=== PATIENT | female | born 1965 | race Hispanic/Latino ===

== ENCOUNTER 2024-08-06 15:37 | Outpatient (CLI) | payer OTHER, SELFPAY ==
--- NOTE | ~2024-08-06 | MM_ITS ---
EXAMINATION: MM screening kiara BI w suzette HISTORY: Screening TECHNIQUE: Craniocaudal and mediolateral oblique 3-D tomosynthesis images were obtained and synthetic 2-D images were generated. CAD analysis was submitted and interpreted. COMPARISON: No prior mammogram is available for comparison at this institution. BREAST PARENCHYMAL COMPOSITION: Not dense: There are scattered areas of fibroglandular density. FINDINGS: There are nodular asymmetries centered in the upper outer quadrant of the right breast anteriorly. No mammographic evidence for malignancy in the left breast. IMPRESSION: 1. Nodular asymmetries of the right breast. 2. Additional mammographic views and possible breast ultrasound are recommended. BI-RADS Category 0: Incomplete: Needs additional imaging evaluation. Reviewed, dictated and finalized at location B. [facility] IMPRESSION: 1. Nodular asymmetries of the right breast. 2. Additional mammographic views and possible breast ultrasound are recommended . BI-RADS Category 0: Incomplete: Needs additional imaging evaluation.
== END 2024-08-06 15:38 | disposition home or self-care (01) ==
LOC: ANHIMG 15:50
PROVIDERS: PCP Nurse Practitioner Family; Visit Provider Obstetrics & Gynecology
DX: Z12.31 Encounter for screening mammogram for malignant neoplasm of breast (principal); R92.8 Other abnormal and inconclusive findings on diagnostic imaging of breast
CPT/HCPCS: 77063; 77067

== ENCOUNTER 2025-07-03 10:05 | Emergency (ER) | payer SELFPAY ==
--- OUTSIDE RECORDS SUMMARY | 2025-07-03 10:08 | XMS_ITS | Encounter Summary ---
Author Organization [facility] - [facility] Address [facility] [place] [address] Care Team Providers Care Extracorporeal Circulation Specialist Name Role Phone Valentina Thornton MD Primary Care Provider [phone] Encounter Details Date Type Department Care Team (Late st Contact Info) Description 04/08/2025 Sproom Message Enc [facility] Medical [facility] General Surgery [address], [address] [place] [address] [facility] Provider Schedule Orthopedic Consultation Appointment Social History Tobacco Use Types Packs/Day Years Used Date Smoking Tobacco: Never Smokeless Tobacco: Never Alcohol Use Standard Drinks/Week Comments Yes 0 (1 standard drink = 0.6 oz pur e alcohol) [facility] Utilities Answer Date Recorded In the past 12 months has e electric, gas, oil, or water company threatened to shut off services in your home? No 07/28/2023 Humiliation, Afraid, Rape, and Kick questionnair e Answer Date Recorded Within the last year, have y ou been afraid of your partner or ex-partner? No 07/28/2023 Within the last year, have y ou been humiliated or emotionally abused in other ways by your partner or ex-partner? No Within the last year, have y ou been kicked, hit, slapped, or otherwise physically hurt by your partner or ex-partner? No 07/28/2023 Within the last year, have y ou been raped or forced to have any kind of sexual activity by your partner or ex-partner? No 07/28/2023 Overall Financial Resource Strain (CARDIA) Answe r Date Recorded How hard is it for you to pa y for the very basics like food, housing, medical care, and heating? Somewhat hard 07/28/2023 PHQ-2 Answer Date Recorded Patient Health Questionnaire-2 Score 0 10/29/2024 Hunger Vital Sign Answer Date Recorded Within the past 12 months, y ou worried that your food would run out before you got the money to buy more. Never true 07/28/20 23 Within the past 12 months, t he food you bought just didn't last and you didn't have money to get more. Never true 07/28/2023 PRAPARE - Transportation Answer Date Re corded In the past 12 months, has l ack of transportation kept you from medical appointments or from getting medications? No 07/03 In the past 12 months, has l ack of transportation kept you from meetings, work, or from getting things needed for daily living? No 07/28/2023 Housing Stability Vital Sign Answer Beto e Recorded In the last 12 months, was t here a time when you were not able to pay the mortgage or rent on time? Yes 07/28/2023 In the last 12 months, how many places have you lived? 1 07/28/2023 In the last 12 months, was t here a time when you did not have a steady place to sleep or slept in a correction (including now)? No 07/28/2023 Comments No Sex and Gender Information Value Date Recorded Sex Assigned at Female 10/28/2024 8:44 AM GEOSCIENCE PROFESSOR Legal Sex Female 5:29 PM CDT Gender Identity Female 10/28/2024 8:44 AM GEOSCIENCE PROFESSOR Sexual Orientation Straight 10/29/2024 10 :15 AM GEOSCIENCE PROFESSOR documented as of this encounter Functional Status * Are you deaf or do you have serious difficulty hearing Answer Date of Assessment Author Status No 07/28/2023 5:35 PM Bambi Ramirez RN Active * Are you blind or do you have serious difficulty seeing, even when wearing glasses? Answer Date of Assessment Author Status No 07/28/2023 5:35 PM Bambi Ramirez RN Active * Do you have serious difficulty walking or climbing stairs? Answer Date of Assessment Author Status Yes 07/28/2023 5:35 PM Bambi Ramirez RN Active * Do you have difficulty dressing or bathing? Answer Date of Assessment Author Status No 07/28/2023 5:35 PM Bambi Ramirez RN Active * Because of a physical, mental, or emotional condition, do you have difficulty doing errands alone such as visiting a doctor's office or shopping? Answer Date of Assessment Author Status No 07/28/2023 5:35 PM Bambi Ramirez RN Active documented as of this encounter Mental Status * Because of a physical, mental, or emotional condition, do you have serious difficulty concentrating, remembering, or making decisions? Answer Entry Date Author Status No 07/28/2023 5:35 PM Bambi Ramirez RN Active documented in this encounter Plan of Treatment Upcoming Encounters Date Type Department Care Team (Late st Contact Info) Description 08/26/2025 8:40 AM GEOSCIENCE PROFESSOR Office Visit [facility] - [address] [address] [place] [address] [place] [address] [facility] [address] [place] [id number] 12/19/2025 8:20 AM CDT Office Visit [facility] - [address], [address] [place] [phone] David Hawk MD [address] [place] [address] [place] [id number] documented as of this encounter Visit Diagnoses Not on filedocumented in this encounter Additional Health Concerns Assessment Noted Time PHQ-9 Depression Total Score: 3 10/29/19 25 10:24 AM GEOSCIENCE PROFESSOR documented as of this encounter Care Teams Extracorporeal Circulation Specialist Relationship Specialty Start [place] [id number] [facility] [address] [place] [id number] PCP - General INTERNAL MEDICINE 03/22/24 documented as of this encounter
--- OUTSIDE RECORDS SUMMARY | 2025-07-03 10:08 | XMS_ITS | Clinical Summary ---
Author Organization [facility] Address [address] [place] [address] Care Team Providers Care Wire Coiler Name Role Phone Esequiel Stern MD Primary Care Provider [phone] Allergies No known active allergies Medications irbesartan (AVAPRO) 300 MG tablet Take 1 tablet (300 mg total) by mouth daily. 10/04/19 25 Active BREZTRI AEROSPHERE 160-9-4.8 MCG/ACT inhaler INHALE 2 PUFFS BY MOUTH EVERY MORNING AND EVERY EVENING 01/03/20 25 Active Testosterone Micronized Powder 02/16/20 25 Active progesterone (PROMETRIUM) 200 MG capsule 02/20/20 25 Active semaglutide 2.5 mg/mL injection (compounded)Indic ations:Weight Loss Inject into the skin once a week. Indications: Weight Loss Active meloxicam (MOBIC) 15 MG tabletIndications :Primary osteoarthritis of left knee Take 1 tablet (15 mg total) by mouth daily. 30 tablet 2 04/29/20 25 Active hydroCHLOROthiazi de (HYDRODIURIL) 25 MG tabletIndications :Essential hypertension TAKE 1 TABLET(25 MG) BY MOUTH EVERY MORNING 90 tablet 1 05/04/20 25 Active vitamin D3 (CHOLECALCIFEROL) 25 mcg tabletIndications :Vitamin D deficiency Take 1 tablet (25 mcg total) by mouth daily. 90 tablet 3 05/07/20 25 Active traMADol (ULTRAM) 50 MG tabletIndications :Chronic Pain Take 1 tablet (50 mg total) by mouth as needed for Pain. Indications: Chronic Pain 21 tablet 05/27/20 25 Active albuterol sulfate HFA 108 (90 Base) MCG/ACT inhalerIndication s:Mild intermittent asthma, unspecified whether complicated (HHS/HCC) INHALE 2 PUFFS INTO THE LUNGS EVERY 4 HOURS NEEDED FOR WHEEZING OR SHORTNESS OF BREATH 8.5 g 3 06/09/20 25 Active albuterol sulfate HFA 108 (90 Base) MCG/ACT inhalerIndication s:Mild intermittent asthma, unspecified whether complicated (HHS/HCC) Inhale 2 puffs into the lungs every 8 (eight) hours as needed for Wheezing. 8.5 g 3 05/06/20 25 025 Discontinued cyclobenzaprine (FLEXERIL) 10 MG tabletIndications :Muscle spasm of back Take 1 tablet (10 mg total) by mouth nightly at bedtime for 30 days. 30 tablet 05/27/20 025 predniSONE (DELTASONE) 20 MG tabletIndications :Chronic pain of left knee Take 1 tablet (20 mg total) by mouth daily for 10 days. With meal 10 tablet 05/27/20 025 Active Problems Problem Noted Date Diagnosed Date Vitamin D deficiency 05/07/2025 Assessment & Plan (05/27/2025 9:42 AM CDT): On D3-K2 OTC-helping for muscle spasm as well Primary osteoarthritis of left knee 04/19/2025 Chronic pain of left knee 04/08/2025 Assessment & Plan (05/27/2025 9:42 AM CDT): Now having medial joint line discomfort , outer side is better. X ray: was wnl per 04/06/25 Awaiting MRI knee Does see Ortho- Rxing as Primary OA H/o ORIF of her left ankle 2 to 3 years ago Did see Ortho and had Bupivacaine Kenolog shot 04/19/25 Discussed viscosupplementation injection if she does not get the relief she is looking for per the Ortho STERILE INSTRUMENT TECHNICIAN PT- made it worse Prefer prednisone and tramadol as needed-sent Wear knee brace Plan to see the Ortho after the MRI next week Orders: predniSONE (DELTASONE) 20 MG tablet; Take 1 tablet (20 mg total) by mouth daily for 10 days. With meal traMADol (ULTRAM) 50 MG tablet; Take 1 tablet (50 mg total) by mouth as needed for Pain. Indications: Chronic Pain Assessment & Plan (05/07/2025 4:47 PM CDT): H/o ORIF of her left ankle 2 to 3 years ago Did see Ortho and had Bupivacaine Kenolog shot 04/19/25 Discussed viscosupplementation injection if she does not get the relief she is looking for per the Ortho STERILE INSTRUMENT TECHNICIAN Now having medial knee pain and prefer MRI ordered Patient to follow-up with Ortho as well Continue with meloxicam with meal and Tylenol at bedtime Use Biofreeze locally and knee brace Bruxism (teeth grinding) 02/04/2025 Assessment & Plan (02/04/2025 11:51 AM CDT): Using dental guard per her Dentist-helping. BMI 50.0-59.9, adult 02/04/2025 Assessment & Plan (02/04/2025 11:51 AM CDT): Recommend to lose weight with diet control and exercise Currently on semaglutide injections for the patient to functional provider Asthma in adult, mild intermittent, uncomplicate d 10/29/2024 Assessment & Plan (02/04/2025 11:51 AM CDT): Couln't tolerate Trelegy- causing rash Now on Breztri + rescue inhaler-overall doing better Morbid obesity 10/29/2024 Assessment & Plan (05/27/2025 9:42 AM CDT): On GLP 1 agonist shots weekly via Functional provider. Gradually reviewed losing some weight, recommended calorie restriction as well Attention deficit hyperactiv ity disorder (ADHD), unspecified ADHD type 10/29/2024 Assessment & Plan (02/04/2025 11:51 AM CDT): Better control last dose taken over 2 months ago Mostly doing clinically okay Pneumonia 07/28/2023 Closed fracture of left distal fibula 10/17/2021 07/29/2023 Overview (07/29/2023): Added automatically from request for surgery [id number] Knee joint laxity 10/24/2017 07/29/2023 Postmenopausal bleeding 10/24/2017 07/29/20 Elevated alkaline phosphatase level 11/28/2015 07/29/2023 Primary hypertension 11/03/2015 07/29/2023 Assessment & Plan (02/04/2025 11:51 AM CDT): Better controlled-on irbesartan 300 mg and hydrochlorothiazide 25 mg daily Low-salt diet encourage including DASH diet Anxiety 12/24/2013 07/29/2023 Lower back pain 01/03/2013 07/29/2023 Allergic rhinitis 08/27/2012 07/29/2023 Asthma 08/27/2012 07/29/2023 Assessment & Plan (05/07/2025 4:47 PM CDT): Known case Wants refill on albuterol-uses up to 5 times per week Orders: MRI KNEE LT WO CON; Future albuterol sulfate HFA 108 (90 Base) MCG/ACT inhaler; Inhale 2 puffs into the lungs every 8 (eight) hours as needed for Wheezing. Abnormal weight gain 08/21/2012 07/29/2023 Encounter for preventive health examination 03/0107/29/2023 Overview (07/29/2023): Transitioned From: Encounter for preventive health examination Encounters Date Type Department Care Team Description 05/27/2025 9:00 AM CDT Office Visit [facility] Internal Medicine [address] [phone] Esequiel Stern MD Knee Pain (L knee pain x1 month, reports hurts worse than when she broke leg) 05/27/[address] [facility] Medicine [address] [phone] Esequiel Stern MD Error 05/27/2025 Travel 05/06/2025 12:56 PM CDT - 05/06/2025 11:59 PM CDT Hospital Encounter [facility] [address] [place] [address] Esequiel Stern MD Discharge Disposition: Home or Self Care (Routine Discharge) 05/06/2025 11:00 AM CDT Laboratory Only [facility] [address] [place] [phone] Esequiel Stern MD 05/06/2025 10:20 AM CDT Office Visit [facility] [address] [place] [address] Esequiel Stern MD Pain (Follow up left knee worse more painful had to stop PT) 05/06/2025 Results Follow-Up [facility] [id number] [place] [phone] Esequiel Stern MD CBC W/DIFF AUTOMATED, TSH W/REFLEX, VITAMIN D, 25 OH 05/06/2025 Travel 05/04/2025 Travel 04/29/2025 8:00 AM CDT - 04/29/2025 11:59 PM CDT Hospital Encounter [facility] [address] [place] [address] Tosha Mejia, PT Db Pulliam, PA Renetta Napoles, COVERING MACHINE OPERATOR HELPER Knee Pain Discharge Disposition: Home or Self Care (Routine Discharge) 04/29/[address] [facility] [id number] [place] [address] Gio Beatty, TRAVIS Pain 04/29/2025 Travel 04/27/2025 8:15 AM CDT - 04/27/2025 11:59 PM CDT Hospital Encounter [facility] [address] [place] [address] Tosha Mejia, PT Db Pulliam, PA Knee Pain Discharge Disposition: Home or Self Care (Routine Discharge) 04/27/2025 Travel 04/22/2025 7:00 AM CDT - 04/22/2025 11:59 PM CDT Hospital Encounter [facility] [address] [place] [address] Tosha Mejia, PT Db Pulliam L, PA Knee Pain Discharge Disposition: Home or Self Care (Routine Discharge) 04/22/2025 Travel 04/20/2025 8:30 AM CDT - 04/20/2025 11:59 PM CDT Hospital Encounter [facility] [address] [place] [address] Tosha Mejia, PT Db Pulliam, PA Knee Pain Discharge Disposition: Home or Self Care (Routine Discharge) 04/19/2025 1:00 PM CDT Office [facility] [id number] [place] [address] Gio Beatty NP Knee Pain (Chronic Left Knee Pain) 04/19/2025 Scan [facility] SRVCS Scanned, [facility] 04/19/2025 Travel 04/15/2025 7:45 AM CDT - 04/15/2025 11:59 PM CDT Hospital Encounter [facility] [address] [place] [phone] Tosha Mejia, PT Db Pulliam, PA Knee Pain Discharge Disposition: Home or Self Care (Routine Discharge) 04/15/2025 Travel 04/08/2025 8:14 AM CDT - 04/08/2025 11:59 PM CDT Hospital Encounter [facility] [address] [place] [address] Tosha Mejia, PT Db Pulliam, PA Knee Pain Discharge Disposition: Home or Self Care (Routine Discharge) 04/08/[address] [facility] General Surgery [address], [address] [place] [phone] [facility] Provider Schedule Orthopedic Consultation Appointment 04/08/2025 Travel 04/06/2025 10:20 AM CDT - 04/06/2025 11:59 PM CDT Hospital Encounter [facility] Diagnostic Imaging [address] [place] [address] Esequiel Stern MD Discharge Disposition: Home or Self Care (Routine Discharge) 04/06/2025 Results Follow-Up [facility] Internal [address] [phone] Esequiel Stern MD XR KNEE LT 3V 04/05/2025 4:00 PM CDT Office Visit [facility] [address] [phone] Esequiel Stern MD Referral Request (Follow up referral pain ortho/ hamstring ) 04/05/2025 Travel from Last 3 Months Immunizations Immunization Administration Dates Next Due Fluzone (IIV3, Trivalent, 0.5 ML Prefilled Syrin ge) 10/29/2024 Fluzone Intradermal Quad (IIV4) 07/07/2018 Influenza (Generic) 06/14/2013,09/04/2012 Influenza Adult (Generic) 08/07/2022,06/11/2019 MODERNA COVID-19 (12+) MRNA, LNP-S, PF, 100 MCG/ 0.5 ML DOSE 09/05/2021 Pneumococcal (Pneumovax 23) 11/03/2015 Social History Tobacco Use Types Packs/Day Years Used Date Smoking Tobacco: Never Smokeless Tobacco: Never Tobacco Cessation:Counseling Given: No Alcohol Use Standard Drinks/Week Comments Yes 1 (1 standard drink = 0.6 oz pur e alcohol) Maybe 5 drinks a month [facility] Utilities Answer Date Recorded In the past 12 months has e [employer], gas, oil, or water [employer] threatened to shut off services in your [...] place to sleep or slept in a chcf (including now)? No 07/28/2023 Comments No Sex and Gender Information Value Date Recorded Sex Assigned at Female 10/28/2024 8:44 AM OPEN PIT QUARRY SUPERVISOR Legal Sex Female 5:29 PM CDT Gender Identity Female 10/28/2024 8:44 AM OPEN PIT QUARRY SUPERVISOR Sexual Orientation Straight 10/29/2024 10 :15 AM OPEN PIT QUARRY SUPERVISOR Last Filed Vital Signs Vital Sign Reading Time Taken Comments Blood Pressure 136/86 05/27/2025 9:12 AM CDT Pulse 79 05/27/2025 9:12 AM CDT Temperature 36.7 C (98.1 F) 05/27/2025 9:12 AM CDT Respiratory Rate 18 05/27/2025 9:12 AM CDT Oxygen Saturation 96% 05/27/2025 9:12 AM CDT Inhaled Oxygen Concentration - - Weight 139.6 kg (307 lb 12.8 oz) 05/27/2025 9:12 AM CDT Height 165.1 cm (5' 5) 05/27/2025 9:12 AM CDT Body Mass Index 51.22 05/27/2025 9:12 AM CDT Plan of Treatment Upcoming Encounters Date Type Department Care Team (Late st Contact Info) Description 08/26/2025 8:40 AM OPEN PIT QUARRY SUPERVISOR Office Visit [facility] - [place] [id number] [place] [phone] [place] [phone] [place] [address] [place] [address] 12/19/2025 8:20 AM CDT Office Visit [facility] - [address], [address] [place] [phone] David Hawk MD [address] [place] [address] [place] [phone] Health Maintenance Due Date Last Done Comments Cervical Cancer Screening Pap Smear (Age 30 to 64) Every 3 Years 1965 Colorectal Cancer Screening Colonoscopy (10 Years) 1965 Annual Physical 1968 Hepatitis C 1983 DTaP, Tdap and Td Vaccines (1 - Tdap) 1984 Cervical Cancer Screening Pap with HPV Testing (Age 30 to 64) Every 5 Years 1995 Cervical Cancer Screening with HPV 1995 Mammogram Screening 2005 Zoster Vaccines (1 of 2) 2015 Pneumococcal Vaccine: 50+ Years (2 of 2 - PCV) 11/02/2016 11/03/2015 COVID-19 Vaccine ( season) 2025 09/05/2021, 09/05/2021, 11/18/2020, Additional history exists Influenza Adult (#1) 2025 10/29/2024, 08/07/2022, 06/11/2019, Additional history exists PHQ-2 (Physician Craig) Completed 10/29/2024 Hepatitis A Vaccines Aged Out No long er eligible based on patient's age to complete this topic Meningococcal B Vaccine Aged Out No l onger eligible based on patient's age to complete this topic Meningococcal Vaccine Aged Out No fely jesus eligible based on patient's age to complete this topic RSV Immunizations Under 20 Months Aged Out No longer eligible based on patient's age to complete this topic Procedures Procedure Name Priority Date/Time Associated Diagnosis Comments COLLECTION VENOUS BLOOD VENIPUNCTURE Routine 05/06/2025 11:08 AM CDT Tiredness TSH W/REFLEX Routine 05/06/2025 11:07 AM CDT Tiredness CBC W/DIFF AUTOMATED Routine 05/06/2025 11:07 AM CDT Tiredness VITAMIN D, 25 OH Routine 05/06/2025 11:0 7 AM CDT Tiredness XR KNEE LT 3V After Office Visit 04/06/2025 10:33 AM CDT Chronic pain of left knee from Last 3 Months Results * TSH W/REFLEX (05/06/2025 11:07 AM CDT) TSH 0.598 0.358 - 3.74 uIU/ML 05/06/2025 1:32 PM CDT [facility] Comment: HIGH DOSES OF BIOTIN MAY INTERFERE WITH THIS TEST RESULT. CORRELATION TO CLINICAL HISTORY AND PRESENTATION RECOMMENDED. FREE T4 NOT INDICATED 05/06/2025 11:0 7 AM CDT us Esequiel Stern MD LABORATORY Final Resul t [facility] [address] [place] [address], * (ABNORMAL) CBC W/DIFF AUTOMATED (05/06/2025 11:07 AM CDT) WBC 10.89 4.4 - 11.0 x10'3/uL 05/06/2025 1:10 PM CDT [facility] RBC 4.44(L) 4.50 - 5.10 x10'6/uL 05/06/2025 1:10 PM CDT [facility] HGB 12.6 12.3 - 15.3 G/DL 05/06/2025 1:10 PM CDT [facility] HCT 39.6 35.9 - 44.6 % 05/06/2025 1:10 PM CDT [facility] MCV 89.2 80.0 - 96.0 FL 05/06/2025 1:10 PM CDT [facility] MCH 28.4 25.3 - 30.9 PG 05/06/2025 1:10 PM CDT [facility] MCHC 31.8 31.0 - 34.1 G/DL 05/06/2025 1:10 PM CDT [facility] RDW 13.7 12.4 - 15.1 % 05/06/2025 1:10 PM CDT [facility] PLT 221 151 - 353 x10'3/uL 05/06/2025 1:10 PM CDT [facility] MPV 9.9 9.6 - 12.0 FL 05/06/2025 1:10 PM CDT [facility] RBC MORPHOLOGY NORMAL 05/06/2025 1:10 PM CDT [facility] PLT MORPH. NORMAL 05/06/2025 1:10 PM CDT [facility] WBC MORPHOLOGY NORMAL 05/06/2025 1:10 PM CDT [facility] LYMPHOCYTES % 16.3 15.8 - 45.0 % 05/06/2025 1:10 PM CDT [facility] NEUTROPHILS % 72.8(H) 42.1 - 71.9 % 05/06/2025 1:10 PM CDT [facility] MONOCYTES % 7.7 5.7 - 12.5 % 05/06/2025 1:10 PM CDT [facility] EOSINOPHILS 2.5 0.0 - 5.6 % 05/06/2025 1:10 PM CDT [facility] BASOPHILS 0.4 0.0 - 1.3 % 05/06/2025 1:10 PM CDT [facility] ABS. NEUTROPHILS 7.93(H) 1.40 - 6.00 x10'3/uL 05/06/2025 1:10 PM CDT [facility] IMMATURE GRANS % 0.3 0.0 - 0.5 % 05/06/2025 1:10 PM CDT [facility] ABS. LYMPHOCYTES 1.78 0.80 - 4.70 x10'3/uL 05/06/2025 1:10 PM CDT [facility] 05/06/2025 11:0 7 AM CDT us Esequiel Stern MD LABORATORY Final Resul t [facility] [address] [place] [address], * (ABNORMAL) VITAMIN D, 25 OH (05/06/2025 11:07 AM CDT) VITAMIN D 25 HYDROXY S/P/B 28(L) 30 - 100 NG/ML 05/06/2025 6:22 PM CDT [facility] Comment: INTERPRETATION DEFICIENT <20 INSUFFICIENT 20-29 SUFFICIENT 30-100 05/06/2025 11:0 7 AM CDT Esequiel Stern MD LABORATORY Final Resul t [facility] [address] [place] [address], * XR KNEE LT 3V (04/06/2025 10:33 AM CDT) Anatomical Region Laterality Modality Knee Radiographic Kaelyn ging 04/06/2025 10:4 4 AM CDT Impressions 04/06/2025 10:44 AM CDT IMPRESSION: No acute findings Ordered By: ESEQUIEL TSERN Interpreted By: Demetris Lopez MD, 04/06/2025 10:44 AM Narrative 04/06/2025 10:44 AM CDT [address] [place] [address] 3 VIEWS OF THE LEFT KNEE Clinical History: Pain Comparison: None 3 views of the left knee demonstrate the bony elements to be intact. There is no evidence of fracture or dislocation. The surrounding soft tissues appear normal. Procedure Note Demetris Lopez MD - 04/06/2025 [facility] [address] [facility] [place] [address] 3 VIEWS OF THE LEFT KNEE Clinical History: Pain Comparison: None 3 views of the left knee demonstrate the bony elements to be intact. Thereis no evidence of fracture or dislocation. The surrounding soft tissuesappear normal. IMPRESSION: No acute findings Ordered By: ESEQUIEL STERN Interpreted By: Demetris Lopez MD, 04/06/2025 10:44 AM Esequiel Stern MD GENERAL IMAGING Final Resul t from Last 3 Months Advance Directives * Full Code (Latest Code Status on File) Date Activated Date Inactivated Comments 07/28/2023 6:07 PM 07/31/2023 3:28 PM Care Teams Wire Coiler Relationship Specialty [place] [address] [place] [address] PCP - General INTERNAL MEDICINE 03/22/24
--- OUTSIDE RECORDS SUMMARY | 2025-07-03 10:08 | XMS_ITS | Clinical Summary ---
Author Organization [facility] Address [address] [place] [address] Care Team Providers Care Medical Reviewer Name Role Phone Unavailable Primary Care Provider Unavailabl e Social History Tobacco Use Types Packs/Day Years Used Date Smoking Tobacco: Never Assessed Comments Unknown Sex and Gender Information Value Date Recorded Sex Assigned at Not on file Legal Sex Female 3:10 PM CDT Gender Identity Not on file Sexual Orientation Not on file Plan of Treatment Health Maintenance Due Date Last Done Comments Hepatitis C Virus (HCV) Screening 1965 TdaP Immunization 1965 Hepatitis B Immunization (1 of 3 - 19+ 3-dose series) 1984 Pap Smear 1986 Cervical Cancer Screening (CCS) 1995 HPV/Cotest 1995 Cologuard 2010 Colonoscopy 2010 Colorectal Cancer Screening 2010 Immunochemical Fecal Occult Blood 2010 Zoster Immunization (1 of 2) 2015 Pneumococcal Immunization (5 0+ years) (2 of 2 - PCV) 11/02/2016 11/03/2015 Influenza Immunization (#1) 2025 06/11/2019 SARS-COV-2 Immunization (3 - season) 2025 11/18/2020, 10/29/2020 Respiratory Syncytial Virus (RSV) Immunization (Adult) (1 - 1-dose 75+ series) 2040 Pneumococcal Immunization Combined Discontinued 11/03/2015 Human Papillomavirus (HPV) Immunization Aged Out No longer eligible based on patient's age to complete this topic Meningococcal Immunization (ACWY) Aged Out No longer eligible based on patient's age to complete this topic Rotavirus Immunization Aged Out No lo nger eligible based on patient's age to complete this topic
--- OUTSIDE RECORDS SUMMARY | 2025-07-03 10:08 | XMS_ITS | Clinical Summary ---
Author Organization [facility] Address [address] [place] [phone] Care Team Providers Care Gift Consultant Name Role Phone No, Physician Primary Care Provider [phone] Allergies No known active allergies Medications acetaminophen-c odeine (TYLENOL with CODEINE #3) 300-30 mg per tablet Take 1-2 tablets by mouth every 6 (six) hours as needed for pain 10 tablet 10/10/2021 Active naproxen (NAPROSYN) 500 mg tablet Take 1 tablet (500 mg total) by mouth 2 (two) times a day with meals 20 tablet 10/10/2021 Active Active Problems Problem Noted Date Diagnosed Date Closed fracture of left distal fibula 10/17/2021 Overview (10/17/2021): Added automatically from request for surgery [id number] Social History Tobacco Use Types Packs/Day Years Used Date Smoking Tobacco: Never Assessed Comments Unknown Sex and Gender Information Value Date Recorded Sex Assigned at Not on file Legal Sex Female 10:56 PM HIGH RAW SUGAR BOILER Gender Identity Not on file Sexual Orientation Not on file Last Filed Vital Signs Vital Sign Reading Time Taken Comments Blood Pressure 169/94 10/10/2021 3:51 PM HIGH RAW SUGAR BOILER Pulse 88 10/10/2021 3:51 PM HIGH RAW SUGAR BOILER Temperature 36.4 C (97.5 F) 10/10/2021 3:51 PM HIGH RAW SUGAR BOILER Respiratory Rate 18 10/10/2021 3:51 PM HIGH RAW SUGAR BOILER Oxygen Saturation 97% 10/10/2021 3:51 PM HIGH RAW SUGAR BOILER Inhaled Oxygen Concentration - - Weight 140.6 kg (310 lb) 10/10/2021 3:51 PM HIGH RAW SUGAR BOILER Height 165.1 cm (5' 5) 10/10/2021 3:51 PM HIGH RAW SUGAR BOILER Body Mass Index 51.59 10/10/2021 3:51 PM HIGH RAW SUGAR BOILER Plan of Treatment Not on file Care Teams Gift Consultant Relationship Specialty Start Date End Date No, Physician PCP - General 10/17/21
--- OUTSIDE RECORDS SUMMARY | 2025-07-03 10:10 | XMS_ITS | Encounter Summary ---
Author Organization [facility] Address [facility] [place] [address] Care Team Providers Care Respiratory Therapy Technician Name Role Phone Valentina Thornton MD Primary Care Provider Encounter Details Date Type Department Care Team (Late st Contact Info) Description 05/06/2025 Results Follow-Up [facility] Family & Internal Medicine [facility] [id number] [place] [phone] [place] [address] [facility] [address] [place] [address] CBC W/DIFF AUTOMATED, TSH W/REFLEX, VITAMIN D, 25 [place] Social History Tobacco Use Types Packs/Day Years Used Date Smoking Tobacco: Never Smokeless Tobacco: Never Alcohol Use Standard Drinks/Week Comments Yes 1 (1 standard drink = 0.6 oz pur e alcohol) Maybe 5 drinks a month [facility] Utilities Answer Date Recorded In the past 12 months has e [employer], gas, oil, or water [employer] threatened to shut off services in your [...] place to sleep or slept in a detention (including now)? No 07/28/2023 Comments No Sex and Gender Information Value Date Recorded Sex Assigned at Female 10/28/2024 8:44 AM PRODUCT GRADER Legal Sex Female 5:29 PM CDT Gender Identity Female 10/28/2024 8:44 AM PRODUCT GRADER Sexual Orientation Straight 10/29/2024 10 :15 AM PRODUCT GRADER documented as of this encounter Functional Status * Are you deaf or do you have serious difficulty hearing Answer Date of Assessment Author Status No 07/28/2023 5:35 PM PRODUCT GRADER Bambi Pritchard RN Active * Are you blind or [...] Ramirez RN Active documented in this encounter Progress Notes * Valentina Thornton MD - 05/07/2025 1:07 PM CDT This result note was created without text. * Valentina Thornton MD - 05/07/2025 1:07 PM CDT Somewhat low OK to take daily 1000 units D3-sent * Valentina Thornton MD - 05/06/2025 3:06 PM CDT Results reviewed. Lab results are overall within normal limits Awaiting Vit d results documented in this encounter Plan of Treatment Upcoming Encounters Date Type Department Care Team (Late st Contact Info) Description 08/26/2025 8:40 AM PRODUCT GRADER Office Visit [facility] Family & Internal Medicine - [address] [phone] [place] [id number] [place] [address] 12/19/2025 8:20 AM CDT Office Visit [facility] Multispecialty Care - [facility] [address] [facility] [place] [address] David Hawk MD [facility] [address] [place] [address] documented as of this encounter Visit Diagnoses Diagnosis Vitamin D deficiency- Primary Unspecified vitamin D deficiency documented in this encounter Additional Health Concerns Assessment Noted Time PHQ-9 Depression Total Score: 3 10/29/19 25 10:24 AM PRODUCT GRADER documented as of this encounter Care Teams Respiratory Therapy Technician Relationship Specialty [place] [address] [place] [address] PCP - General INTERNAL MEDICINE 03/22/24 documented as of this encounter
[2025-07-03 10:14] VITALS: BP 150/79; PULSE 81; RESP 20; TEMP 36.5; O2SAT 99
--- NOTE | 2025-07-03 10:39 | ED.GENADULT ---
HPI - General Adult General Chief complaint: Upper Respiratory Infection Stated complaint: Upper Respiratory Infection History of Present Illness HPI narrative: Nola Paulino Is a 59 year female with past medical history of asthma who presents with complaints of having worsening URI symptoms that started about 4-5 days ago. She states that she has been using her inhaler not albuterol nebulizer more often and wants to make sure it does not get any worse. She has not reported any known fevers but she has been taking [id number] cold medications help with some of her symptoms. Denies current severe shortness of breath or chest pain Related Data Allergies Allergy/AdvReac Type Severity Reaction Status Date / Time telmisartan (Micardis) Allergy Intermediate swelling Verified 07/03/25 10:11 Review of Systems Review of Systems: All systems reviewed & are unremarkable except as noted in HPI and below JISH Past Medical History Medical History Breast asymmetry (08/09/24) right Depression Moderate persistent asthma Obesity, morbid, BMI 50 or higher Asthma exacerbation Influenza A Generalized anxiety disorder Hypertension Asthma Surgical History Surgical History History of cholecystectomy (~2018) Family History Family History Mother Mental health disorder Social History Social History Social History: 05/07/24 very confident with medical forms 08/12/24 declined SDCO Smoking status: Never smoker Alcohol intake: current Drinks per week: 1 Substance use: never Substance use type: does not use Do You Feel Safe in your Home?: Yes Lack of Transportation: YES Lack of Food: Never True Current Housing: I Have Housing Concerned About Future Housing: No Difficulty Paying Gas/Electric Bills: No Difficulty Paying for Meds: Decline to Answer Currently Unemployed: No Education: Trade/Vocational Certificate Difficulty w/ Childcare or Family Care: No Living arrangements: with family Occupation/Education: occupation 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 HEAD: Normocephalic, atraumatic. EYES: PERRLA and EOMI. ENT: Nares clear, no rhinorrhea or epistaxis. Mucous membranes moist. Oropharynx without tonsillar hypertrophy exudate or other lesions. Bilateral TMs pearly lauren non bulging NECK: Supple. No adenopathy or masses. No carotid bruits or JVD CHEST:No respiratory distress. mild wheeze to the right posterior base HEART: Regular rate and rhythm. No murmur heard. Normal peripheral pulses. EXTREMITIES: Normal range of motion. No edema. SKIN: Warm, dry, no rash. NEURO: No focal deficits. Alert and oriented x3. PSYCH: Normal mood and affect. Course Course Level of Care: Express Care Visit Vital Signs Vital signs: Vital Signs Temperature 36.5 C 07/03/25 10:14 Pulse Rate 81 07/03/25 10:14 Respiratory Rate 20 07/03/25 10:14 Blood Pressure 150/79 H 07/03/25 10:14 Pulse Oximetry 99 07/03/25 10:14 Oxygen Delivery Room Air 07/03/25 10:14 Temperature 36.5 C 07/03/25 10:14 Pulse Rate 81 07/03/25 10:14 Respiratory Rate 20 07/03/25 10:14 Blood Pressure 150/79 H 07/03/25 10:14 Pulse Oximetry 99 07/03/25 10:14 Oxygen Delivery Room Air 07/03/25 10:14 Medical Decision Making [facility] Narrative Medical decision making narrative: This 59 year old patient presents with symptoms most suggestive of acute bronchitis, . Lungs are noted to have mild posterior right lower wheeze concern for acute asthma exacerbation [facility] brnochitis plan to start steroid pack and azithromycin Patient discharged home in stable condition with expectant management. Return precautions were provided. Procedures: Pulse oximetry interpretation - not hypoxic. Review of medical records. DISPOSITION: Discharged home in stable condition. IMPRESSION: Acute Bronchitis asthma exacerbation Medical Records Medical records reviewed: Yes I reviewed the external patient's medical records. Vital Signs Vital Signs: Vital Signs Temperature 36.5 C 07/03/25 10:14 Pulse Rate 81 07/03/25 10:14 Respiratory Rate 20 07/03/25 10:14 Blood Pressure 150/79 H 07/03/25 10:14 Pulse Oximetry 99 07/03/25 10:14 Oxygen Delivery Room Air 07/03/25 10:14 Temperature 36.5 C 07/03/25 10:14 Pulse Rate 81 07/03/25 10:14 Respiratory Rate 20 07/03/25 10:14 Blood Pressure 150/79 H 07/03/25 10:14 Pulse Oximetry 99 07/03/25 10:14 Oxygen Delivery Room Air 07/03/25 10:14 vitals reviewed Discharge Plan Discharge Clinical Impression: Asthma, Bronchitis Asthma exacerbation Qualifiers: Asthma severity: mild Asthma persistence: unspecified Qualified Code(s): J45.901 - Unspecified asthma with (acute) exacerbation Patient Disposition: Home Condition: Stable Instructions: Antibiotic Form Additional Instructions: Start taking the Prednisone dose pack today, along with the Azithromycin antibiotic Follow up with your PCP in 1 week to ensure you are improving Please push fluids, drinking plenty of fluids , get plenty of rest I expect you to start feeling better in about 48 hours of starting the treatment If you develop any new or worsening sympomts, chest pain, shortness of breath or difficulty breathing proceed to the ER. Patient Language: Turkish Prescriptions: New prednisone 5 mg tablets,dose pack See Rx Instructions .ROUTE .COMPLEX Qty: 21 0RF Rx Instructions: orally per package directions azithromycin 250 mg tablet See Rx Instructions .ROUTE .COMPLEX Qty: 6 0RF Rx Instructions: For 250 mg dose pack: take 500 mg today - 2 tabs (day 1), then 250 mg- 1 tab for 4 days (days 2-5) No Action Zyrtec 10 mg capsule 10 mg PO DAILY Qty: 90 0RF (DME) [place] Choice Neb Kit-Adult Misc See Rx Instructions .Route Qty: 1 0RF Rx Instructions: As directed albuterol sulfate 2.5 mg /3 mL (0.083 %) solution for nebulization 2.5 mg inhalation Q4-6H PRN (Reason: shortness of breath or wheezing) Qty: 180 0RF montelukast [Singulair] 10 mg tablet 10 mg PO QHS Qty: 90 0RF Breztri Aerosphere 160-9-4.8 mcg/actuation HFA aerosol inhaler See Rx Instructions .ROUTE .COMPLEX Qty: 10.7 2RF Dose Instruction: INHALE 2 PUFFS BY MOUTH EVERY MORNING AND 2 PUFFS EVERY EVENING Rx Instructions: INHALE 2 PUFFS BY MOUTH EVERY MORNING AND 2 PUFFS EVERY EVENING dextroamphetamine-amphetamine [Adderall] 20 mg tablet 20 mg PO DAILY Qty: 30 0RF irbesartan 300 mg tablet 300 mg PO DAILY Qty: 90 0RF Follow-up/Referrals: PHYSICIAN,EVENT OPERATIONS MANAGER [Primary Care Provider, Internal Medicine] Stand Alone Forms: Work/School Release IP Time of Disposition: 10:47
== END 2025-07-03 10:51 | disposition home or self-care (01) ==
PROVIDERS: Emergency Provider Nurse Practitioner Family
DX: J45.901 Unspecified asthma with (acute) exacerbation (principal); I10 Essential (primary) hypertension; E66.01 Morbid (severe) obesity due to excess calories; Z68.43 Body mass index [BMI] 50.0-59.9, adult
CPT/HCPCS: 99213; G0463